=== PATIENT | male | born 1980 | race Caucasian/White ===

== ENCOUNTER 2022-09-13 09:46 | Emergency (ER) | payer BC, SELFPAY ==
[2022-09-13 09:51] VITALS: BP 142/85; PULSE 70; RESP 20; TEMP 36.3; O2SAT 98; BMI 24.2
--- NOTE | 2022-09-13 10:15 | CRLHL7_ITS ---
For Patients: As a result of the Century Cures Act, medical imaging exams and procedure reports are released immediately into your electronic medical record. You may view this report before your referring provider. If you have questions, please contact your health care provider. CLINICAL HISTORY: Testicular swelling TECHNIQUE: Mccormick scale imaging was performed of the scrotum. In addition color Doppler and spectral Doppler analysis was performed of the testes. FINDINGS: The testes demonstrate normal arterial and venous blood flow on color Doppler and spectral Doppler analysis. The testes have uniform echogenicity with no evidence of a suspicious mass or area of inflammation. The right testis measures 4.8 x 2 x 2 2 in size and the left testis measures 4.8 x 2.2 x 3 point centimeters. The epididymis appears normal bilaterally. There is no evidence of a hydrocele or varicocele. IMPRESSION: Unremarkable exam. Normal blood flow to both testes. Dictated by Kathie Sun MD @ 09/13/2022 12:08:57 PM (Electronically Signed)
--- NOTE | 2022-09-13 10:16 | ED.MALEGU ---
HPI - Male Genitourinary General Chief complaint: Urogenital Problems, Male Stated complaint: Symptoms of testicular tortion Time Seen by Provider: 09/13/22 10:00 Source: patient Mode of arrival: ambulatory Limitations: no limitations History of Present Illness HPI Narrative: Otherwise healthy 42-year-old male presents to the emergency department with penis and scrotal swelling this started after an episode of a rough intercourse at about 11:00 p.m. last night which is about 10 hours prior to presentation. Patient reports that his scrotum was sharply tugged on, did not notice any feeling of breakage, popping or severe pain. Had some mild discomfort. He awoke at 2:00 a.m. and 5:00 a.m. with mild discomfort and noted swelling in the testicle area. He has been able to urinate x2 since the episode with no blood in his urine did have some very mild discomfort with the urination but it did not strike him is terribly unusual. There has been no fevers or symptoms of bladder infection or blood in his urine. It is that the penis ?seems misshapen?. On specific questioning he says that the area around the head of the penis seems engorged. This has never happened before. No history of testicular surgery or cancers. It has not taken any medication to help with his symptoms. No reason to suspect STD, no new sexual partners. The tenderness of the scrotum is bilateral, achy does not localize to 1 testicle more than the other. He did call the nurse triage line for his clinic and was advised to come to the ED. there is no abdominal pain. He did have some mild lightheadedness when in the shower with examining the area this morning but no fevers or other systemic symptoms. 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 He has an action plan where he takes Zyrtec and Maryjane twice daily on an ongoing basis but admits that he has not been taking it for the last few weeks as he has not had any episodes. He has prednisone on hand to take if he gets an outbreak but has not taken any in the last few months. He did not try taking any of his antihistamines as he had not consider this as a source of his swelling. Past medical history most notable for the angioedema, denies any other chronic long-term health problems. Home meds are Maryjane, Zyrtec and prednisone which are as needed, not currently using. Socially with no reason to suspect STD or risk factors as such. ROS is notable for the and mild systemic symptoms as above, otherwise denies times 12 systems. Related Data Home Medications Medication Instructions Recorded Confirmed No Known Home Medications 09/13/22 09/13/22 Allergies Allergy/AdvReac Type Severity Reaction Status Date / Time ibuprofen Allergy Severe Verified 09/13/22 09:56 Sulfa (Sulfonamide Allergy Unknown Verified 09/13/22 09:56 Antibiotics) [facility] Social History Smoking Status: Former smoker How often do you have a drink containing alcohol: 2-3 times a week How many standard drinks containing alcohol do you have on a typical day: 1 or 2 AUDIT-C Alcohol total score: 3 Non-prescribed substance use: denies use Exam Const: Vital Signs, click to edit/add: Vital Signs - 24 hr 09/13/22 09:51 Temperature 97.3 F L Pulse Rate [Pulse Oximeter] 70 Respiratory Rate 20 Blood Pressure [Ri ght Upper Arm] 142/85 H Pulse Oximetry 98 Oxygen Delivery Me thod Room Air Documenting provider has reviewed patient's vital signs: yes Common normals: no apparent distress General appearance: cooperative, comfortable and well kempt HENMT: Common normals: normocephalic Head and scalp: normocephalic Mouth: oral and palatal mucosa normal Throat: posterior oropharynx normal Other: Normal oral mucosa, lips and tongue. No swelling of the eyelids. Eye: Common normals: PERRL, EOMs intact bilaterally and conjunctivae normal Conjunctiva: conjunctiva(e) normal Pupil: PERRL Neck & C-Spine: Common normals: no lymphadenopathy Resp: Common normals: normal respiratory effort, no use of accessory muscles and clear to auscultation bilaterally Effort & inspection: able to speak in complete sentences Auscultation: clear to auscultation bilaterally Cardio: Common normals: regular rate, regular rhythm, S1 normal heart sound, S2 normal heart sound, no murmurs and peripheral pulses 2+ throughout Rate: regular rate Rhythm: regular rhythm Heart sounds: S1 normal and S2 normal Peripheral pulses: pulses 2+ throughout GI: Common normals: Normal to inspection, nondistended, normoactive bowel sounds present, soft to palpation, no hepatosplenomegaly and no masses Palpation: soft and no hepatosplenomegaly : Other: Examination of the scrotum and penis shows that the shaft of the penis appears normal. The glans and urethral meatus appear normal. The gayle does show some swelling, watery and hive like in nature specifically from 10-2 around the inferior edge of the gayle. The scrotum itself is diffusely swollen but the testicles are normal in size, shape and contour and are not tender specifically. The scrotum is boggy and transilluminates with clear fluid. I do not appreciate any hernia or additional mass. Extremity: Common normals: normal capillary refill and no pedal edema Psych: Common normals: thought process normal Appearance: well kempt Thought process: normal thought process Insight: insight good Judgement: judgment good Skin: Common normals: no rashes or lesions noted Narrative: Other than the penis, no signs of hives or swelling. General skin exam: no rashes or lesions noted Course Vital Signs Vital signs: Initial Vital Signs Temperature 97.3 F L 09/13/22 09:51 Temperature Source Temporal Artery Scan 09/13/22 09:51 Pulse Rate 70 09/13/22 09:51 Respiratory Rate 20 09/13/22 09:51 Blood Pressure 142/85 H 09/13/22 09:51 Blood Pressure Mean 104 09/13/22 09:51 Blood Pressure Position Supine 09/13/22 09:51 Pulse Oximetry 98 09/13/22 09:51 Oxygen Delivery Method 09/13/22 09:51 Vital Signs Temperature 97.3 F L 09/13/22 09:51 Pulse Rate 70 09/13/22 09:51 Respiratory Rate 20 09/13/22 09:51 Blood Pressure 142/85 H 09/13/22 09:51 Pulse Oximetry 98 09/13/22 09:51 Oxygen Delivery Method 09/13/22 09:51 Temperature 97.3 F L 09/13/22 09:51 Pulse Rate 70 09/13/22 09:51 Respiratory Rate 20 09/13/22 09:51 Blood Pressure 142/85 H 09/13/22 09:51 Pulse Oximetry 98 09/13/22 09:51 Oxygen Delivery Method 09/13/22 09:51 MDM - Male Genitourinary MDM Narrative Medical decision making narrative: Differential diagnosis including disruption of genital structures from trauma, limited low concern for urethral disruption due to the fact that there was no blood, and he has urinated twice normally. Presentation is not consistent with STD. Concern for testicular torsion or other abnormality, scrotal ultrasound ordered. I do actually suspect that this is mostly related to angioedema, likely initiated from micro trauma from intercourse. Recommended famotidine and Zyrtec. Await ultrasound. If ultrasound is not revealing, will treat with prednisone also. Watch closely for any signs of progressive respiratory distress. Update: The ultrasound findings were reviewed with patient. No signs of abnormalities. Recheck shows that he has had marked improvement in all swelling and is anatomically back to normal. No shortness of breath, lip or tongue swelling or eyelid swelling, no hives. Reviewed plan of care. Do suspect angioedema was etiology. Counseled on continued use of antihistamines and p.r.n. prednisone if his symptoms worsen again Imaging Data Scrotum ultrasound: Attestation: I have reviewed the pertinent imaging results. My impression: Normal Radiologist's impression: MPRESSION: Unremarkable exam. Normal blood flow to both testes. Discharge Plan Discharge Clinical Impression: Angioedema Patient Disposition: Home, Self-Care Condition: Improved Instructions: Angioedema (ED) Additional Instructions: As we discussed, I do think this is related to your angioedema. I am glad that things responded so quickly to the antihistamines. I would like for you to take either Zyrtec or Maryjane once daily for the next 2 days, if the swelling returns I would like for you to start your prednisone taper. If you are unable to urinate or start having significant amount of blood in your urine, please let us know. Otherwise you may resume all usual activities. Activity Level: No Restrictions Discharge Diet: Regular Prescriptions: No Action No Known Home Medications Follow Up/Referrals: Omar Hampton MD [Primary Care Provider] - Stand Alone Forms: [employer] Info Instructions
[2022-09-13] MEDS: FAMOTIDINE 20 MG TABLET PO (10:28)
[2022-09-13] MEDS: CETIRIZINE HCL 10 MG TABLET PO (10:28)
--- NOTE | 2022-09-13 11:29 | ED.NURSE ---
pt states swelling has gone down since taking meds. feeling better, resting in bed, reading book.
== END 2022-09-13 13:01 | disposition home or self-care (01) ==
PROVIDERS: Emergency Provider Family Medicine; PCP Family Medicine
DX: T78.3XXA Angioneurotic edema, initial encounter (principal)
CPT/HCPCS: 76870; 93976; 99283; A9270

== ENCOUNTER 2023-08-13 14:00 | Outpatient (RCR) | payer BC, SELFPAY | END 2023-12-11 23:59 | disposition home or self-care (01) | PROVIDERS: PCP Family Medicine; Visit Provider Family Medicine | DX: M54.9 Dorsalgia, unspecified (principal); M54.42 Lumbago with sciatica, left side; Z51.89 Encounter for other specified aftercare | CPT/HCPCS: 97110; 97140; 97161 ==